=== PATIENT | male | born 1965 | race Caucasian/White ===

== ENCOUNTER 2021-09-29 23:14 | Inpatient (IN) | payer MEDICAID ==
[~2021-09-29] VITALS: Ht 172.7 cm; Wt 63.0 kg
[2021-09-29] MEDS ORDERED: GABAPE PO (23:50)
[2021-09-29] MEDS ORDERED: DULO-114 PO (23:50)
[2021-09-29] MEDS ORDERED: TAMS-13 PO (23:50)
[2021-09-29 23:57] LABS: BASOPHILS % (AUTO) 0.7 % (0.0-2.0); EOSINOPHILS % (AUTO) 0.7 % (1.0-6.0); HEMATOCRIT 40.5 % (41-53); HEMOGLOBIN 13.8 g/dL (13.5-17.5); LYMPHOCYTES % (AUTO) 17.3 % (22.0-44.0); MEAN CORPUSCULAR HEMOGLOBIN 34.3 pg (26.0-34.0); MEAN CORPUSCULAR HGB CONC 34.2 G/dL (31.0-37.0); MEAN CORPUSCULAR VOLUME 100 fL (80-100); MONOCYTES # (AUTO) 0.9 K/uL (0.1-1.0); MONOCYTES % (AUTO) 7.4 % (2.0-9.0); NEUTROPHILS # (AUTO) 8.7 K/uL (1.8-7.7); NEUTROPHILS % (AUTO) 73.9 % (40.0-70.0); PLATELET COUNT (AUTO) 226 K/uL (150-450); RED BLOOD CELL COUNT(AUTO) 4.04 MIL/uL (4.50-5.90); RED CELL DISTRIBUTION WIDTH 15.6 % (11.5-14.5)
[2021-09-30 00:18] LABS: ANION GAP 12 mmol/L (8-16); CALCIUM, TOTAL 9.1 mg/dL (8.8-10.5); CARBON DIOXIDE 26 mmol/L (22-29); CHLORIDE 101 mmol/L (98-107); CREATININE 0.79 mg/dL (0.60-1.30); GLUCOSE,RANDOM 91 mg/dL (70-110); POTASSIUM 3.7 mmol/L (3.5-5.1); SODIUM SERUM 139 mmol/L (136-145); UREA NITROGEN, BLOOD 14 mg/dL (7-18)
[2021-09-30 00:22] LABS: GLOMERULAR FILTR. RATE CALC > 60 mL/min (>60)
[2021-09-30 00:23] LABS: ALANINE AMINOTRANSFERASE 23 U/L (12-78); ALBUMIN 3.6 g/dL (3.4-5.0); ALKALINE PHOSPHATASE 103 U/L (46-116); ASPARTATE AMINOTRANSFERASE 32 U/L (15-37); BILIRUBIN,TOTAL 0.4 mg/dL (0.1-1.0); LIPASE 204 U/L (73-393); TOTAL PROTEIN, SERUM 7.1 g/dL (6.4-8.2)
[2021-09-30 00:25] LABS: LACTIC ACID 0.9 mmol/L (0.4-2.0)
[2021-09-30 00:47] LABS: B-TYPE NATRIURETIC PEPTIDE 6 pg/mL (0-100)
[2021-09-30] MEDS ORDERED: MAGNESIUM SULFATE 2 GM, MVI, ADULT NO.1 WITH VIT K 10 ML, THIAMINE 100 MG, FOLIC ACID 1... IV ONE ×10 (01:30→15:45)
[2021-09-30] MEDS ORDERED: DIAZEPAM 5 MG/ML 2 ML SYRINGE IVP ONE (01:30)
[2021-09-30] MEDS ORDERED: 0.9% SODIUM CHLORIDE 10 ML SYRINGE IVP PRN (02:45)
[2021-09-30] MEDS ORDERED: ONDANSETRON HCL 4 MG/2 ML VIAL IVP PRN ×2 (02:45→15:45)
[2021-09-30] MEDS ORDERED: ACETAMINOPHEN 325 MG TABLET PO PRN ×2 (02:45→15:45)
[2021-09-30 02:56] LABS: COVID AG,FIA SOURCE NASOPHARYNGEAL
[2021-09-30] MEDS ORDERED: LORazepam 2 MG TABLET PO ONE (03:00)
[2021-09-30] MEDS ORDERED: LORazepam 1 MG TABLET PO PRN (03:00)
[2021-09-30 11:49] VITALS: BP 135/84
[2021-09-30] MEDS ORDERED: HYDROCODONE/ACETAMINOPHEN 5-325 MG TABLET PO PRN (15:45)
[2021-09-30] MEDS ORDERED: BISACODYL 10 MG RECTAL RECTAL SUPPOSITORY PR PRN (15:45)
[2021-09-30] MEDS ORDERED: MORPHINE SULFATE 2 MG/ML SYRINGE IVP PRN (15:45)
[2021-09-30] MEDS ORDERED: MAGNESIUM HYDROXIDE SUSPENSION 30 ML UDCUP PO PRN (15:45)
[2021-09-30] MEDS: TAMSULOSIN HCL 0.4 MG CAPSULE PO SCH (16:17)
[2021-09-30] MEDS: ChlordiazePOXIDE HCL 25 MG CAPSULE PO SCH ×2 (16:17→23:56)
[2021-09-30] MEDS: DULoxetine HCL 30 MG CAPSULE PO SCH (16:18)
[2021-09-30] MEDS: HEPARIN SODIUM,PORCINE 5,000 UNITS/ML VIAL SQ SCH ×2 (16:18→23:57)
[2021-09-30 16:56] VITALS: BP 145/83
[2021-09-30 19:59] VITALS: BP 123/63
[2021-09-30] MEDS: DOCUSATE SODIUM 100 MG CAPSULE PO SCH (20:26)
[2021-10-01 05:25] VITALS: BP 133/84
[2021-10-01 06:07] LABS: BASOPHILS % (AUTO) 1.2 % (0.0-2.0); EOSINOPHILS % (AUTO) 1.2 % (1.0-6.0); HEMOGLOBIN 13.1 g/dL (13.5-17.5); LYMPHOCYTES # (AUTO) 2.3 K/uL (1.0-4.8); LYMPHOCYTES % (AUTO) 36.5 % (22.0-44.0); MEAN CORPUSCULAR HEMOGLOBIN 34.8 pg (26.0-34.0); MEAN CORPUSCULAR HGB CONC 34.6 G/dL (31.0-37.0); MEAN CORPUSCULAR VOLUME 101 fL (80-100); MONOCYTES # (AUTO) 0.7 K/uL (0.1-1.0); MONOCYTES % (AUTO) 11.4 % (2.0-9.0); NEUTROPHILS # (AUTO) 3.1 K/uL (1.8-7.7); NEUTROPHILS % (AUTO) 49.7 % (40.0-70.0); PLATELET COUNT (AUTO) 198 K/uL (150-450); RED BLOOD CELL COUNT(AUTO) 3.77 MIL/uL (4.50-5.90); RED CELL DISTRIBUTION WIDTH 15.1 % (11.5-14.5)
[2021-10-01 06:15] LABS: ANION GAP 9 mmol/L (8-16); CALCIUM, TOTAL 8.6 mg/dL (8.8-10.5); CARBON DIOXIDE 24 mmol/L (22-29); CHLORIDE 107 mmol/L (98-107); CREATININE 0.69 mg/dL (0.60-1.30); GLUCOSE,RANDOM 103 mg/dL (70-110); POTASSIUM 3.6 mmol/L (3.5-5.1); SODIUM SERUM 140 mmol/L (136-145); UREA NITROGEN, BLOOD 9 mg/dL (7-18)
[2021-10-01 06:20] LABS: GLOMERULAR FILTR. RATE CALC > 60 mL/min (>60)
[2021-10-01] MEDS: ChlordiazePOXIDE HCL 25 MG CAPSULE PO SCH ×2 (08:30→20:37)
[2021-10-01] MEDS: DOCUSATE SODIUM 100 MG CAPSULE PO SCH ×2 (08:30→20:40)
[2021-10-01] MEDS: DULoxetine HCL 30 MG CAPSULE PO SCH (08:31)
[2021-10-01] MEDS: TAMSULOSIN HCL 0.4 MG CAPSULE PO SCH (08:31)
[2021-10-01] MEDS: PANTOPRAZOLE SODIUM 40 MG DR TABLET PO SCH (08:31)
[2021-10-01] MEDS: HEPARIN SODIUM,PORCINE 5,000 UNITS/ML VIAL SQ SCH ×4 (08:31→23:38)
[2021-10-01 08:44] VITALS: BP 128/77
[2021-10-01] MEDS ORDERED: TAMSULOSIN HCL 0.4 MG CAPSULE PO SCH (09:00)
[2021-10-01] MEDS ORDERED: DULoxetine HCL 30 MG CAPSULE PO SCH (09:00)
[2021-10-01] MEDS ORDERED: MAGNESIUM SULFATE 2 GM, MVI, ADULT NO.1 WITH VIT K 10 ML, THIAMINE 100 MG, FOLIC ACID 1... IV ONE ×5 (15:15)
[2021-10-01 16:05] VITALS: BP 110/65
[2021-10-01 20:32] VITALS: BP 112/74
[2021-10-01] MEDS: ZOLPIDEM TARTRATE 5 MG TABLET PO PRN (23:38)
[2021-10-02 04:55] VITALS: BP 118/72
[2021-10-02 07:58] VITALS: BP 122/74
[2021-10-02] MEDS: DOCUSATE SODIUM 100 MG CAPSULE PO SCH ×2 (09:00→21:00)
[2021-10-02] MEDS: PANTOPRAZOLE SODIUM 40 MG DR TABLET PO SCH (09:35)
[2021-10-02] MEDS: DULoxetine HCL 30 MG CAPSULE PO SCH (09:35)
[2021-10-02] MEDS: TAMSULOSIN HCL 0.4 MG CAPSULE PO SCH (09:35)
[2021-10-02] MEDS: ChlordiazePOXIDE HCL 25 MG CAPSULE PO SCH ×2 (09:36→21:08)
[2021-10-02 11:43] LABS: BASOPHILS % (AUTO) 0.7 % (0.0-2.0); EOSINOPHILS % (AUTO) 0.8 % (1.0-6.0); HEMATOCRIT 40.2 % (41-53); HEMOGLOBIN 13.8 g/dL (13.5-17.5); LYMPHOCYTES # (AUTO) 1.8 K/uL (1.0-4.8); LYMPHOCYTES % (AUTO) 30.2 % (22.0-44.0); MEAN CORPUSCULAR HEMOGLOBIN 34.7 pg (26.0-34.0); MEAN CORPUSCULAR HGB CONC 34.3 G/dL (31.0-37.0); MEAN CORPUSCULAR VOLUME 101 fL (80-100); MONOCYTES # (AUTO) 0.6 K/uL (0.1-1.0); MONOCYTES % (AUTO) 9.8 % (2.0-9.0); NEUTROPHILS # (AUTO) 3.5 K/uL (1.8-7.7); NEUTROPHILS % (AUTO) 58.5 % (40.0-70.0); PLATELET COUNT (AUTO) 212 K/uL (150-450); RED BLOOD CELL COUNT(AUTO) 3.97 MIL/uL (4.50-5.90); RED CELL DISTRIBUTION WIDTH 15.8 % (11.5-14.5)
[2021-10-02 11:54] LABS: ANION GAP 11 mmol/L (8-16); CARBON DIOXIDE 24 mmol/L (22-29); CHLORIDE 105 mmol/L (98-107); CREATININE 0.81 mg/dL (0.60-1.30); GLOMERULAR FILTR. RATE CALC > 60 mL/min (>60); GLUCOSE,RANDOM 93 mg/dL (70-110); SODIUM SERUM 140 mmol/L (136-145); UREA NITROGEN, BLOOD 8 mg/dL (7-18)
[2021-10-02] MEDS ORDERED: CHLO5CAP4 PO (12:26)
[2021-10-02] MEDS ORDERED: TAMS-13 PO (12:26)
[2021-10-02] MEDS: HEPARIN SODIUM,PORCINE 5,000 UNITS/ML VIAL SQ SCH (16:22)
[2021-10-02 19:59] VITALS: BP 120/80
[2021-10-02] MEDS: ZOLPIDEM TARTRATE 5 MG TABLET PO PRN (21:08)
[2021-10-03 03:55] VITALS: BP 124/67
[2021-10-03 07:42] VITALS: BP 116/76
[2021-10-03] MEDS: DOCUSATE SODIUM 100 MG CAPSULE PO SCH (09:00)
[2021-10-03] MEDS: DULoxetine HCL 30 MG CAPSULE PO SCH (09:14)
[2021-10-03] MEDS: HEPARIN SODIUM,PORCINE 5,000 UNITS/ML VIAL SQ SCH ×2 (09:14)
[2021-10-03] MEDS: PANTOPRAZOLE SODIUM 40 MG DR TABLET PO SCH (09:14)
[2021-10-03] MEDS: ChlordiazePOXIDE HCL 25 MG CAPSULE PO SCH (09:14)
[2021-10-03] MEDS: TAMSULOSIN HCL 0.4 MG CAPSULE PO SCH (09:14)
[2021-10-03 11:58] LABS: BASOPHILS % (AUTO) 1.1 % (0.0-2.0); EOSINOPHILS % (AUTO) 0.8 % (1.0-6.0); HEMATOCRIT 41.7 % (41-53); LYMPHOCYTES # (AUTO) 2.6 K/uL (1.0-4.8); LYMPHOCYTES % (AUTO) 31.3 % (22.0-44.0); MEAN CORPUSCULAR HEMOGLOBIN 34.3 pg (26.0-34.0); MEAN CORPUSCULAR HGB CONC 33.6 G/dL (31.0-37.0); MEAN CORPUSCULAR VOLUME 102 fL (80-100); MONOCYTES # (AUTO) 0.8 K/uL (0.1-1.0); MONOCYTES % (AUTO) 9.1 % (2.0-9.0); NEUTROPHILS # (AUTO) 4.8 K/uL (1.8-7.7); NEUTROPHILS % (AUTO) 57.7 % (40.0-70.0); PLATELET COUNT (AUTO) 216 K/uL (150-450); RED BLOOD CELL COUNT(AUTO) 4.09 MIL/uL (4.50-5.90); RED CELL DISTRIBUTION WIDTH 15.3 % (11.5-14.5)
[2021-10-03 12:17] LABS: ANION GAP 11 mmol/L (8-16); CALCIUM, TOTAL 9.4 mg/dL (8.8-10.5); CARBON DIOXIDE 26 mmol/L (22-29); CHLORIDE 102 mmol/L (98-107); CREATININE 0.78 mg/dL (0.60-1.30); GLOMERULAR FILTR. RATE CALC > 60 mL/min (>60); GLUCOSE,RANDOM 100 mg/dL (70-110); SODIUM SERUM 139 mmol/L (136-145); UREA NITROGEN, BLOOD 11 mg/dL (7-18)
[2021-10-03 16:00] VITALS: BP 120/79
== END 2021-10-03 17:25 | disposition home or self-care (01) | DRG 775 ==
LOC: EMS 23:17 → 6S 09-30 10:54
PROVIDERS: ADMIT Hospitalist; ATTEND Internal Medicine
DX: F10.239 Alcohol dependence with withdrawal, unspecified (principal); R45.851 Suicidal ideations; R65.10 Systemic inflammatory response syndrome (SIRS) of non-infectious origin without acute organ dysfunction; F33.2 Major depressive disorder, recurrent severe without psychotic features; N40.0 Benign prostatic hyperplasia without lower urinary tract symptoms; Z20.822 Contact with and (suspected) exposure to COVID-19; Y90.9 Presence of alcohol in blood, level not specified
CPT/HCPCS: 71045; 80048; 80053; 83605; 83690; 83735; 83880; 84484; 85025; 93005; 97116; 97162; 97530; 99285; G0480; J1644; J3411; J3475; J3490; J7030; 36415-L1; 36415-TC

== ENCOUNTER 2021-11-17 21:04 | Inpatient (IN) | payer MEDICAID ==
[~2021-11-17] VITALS: Ht 182.9 cm; Wt 60.3 kg
[~2021-11-17 21:04] MED LIST: CHLO5CAP4 PO; DULO-114 PO; GABAPE PO; TAMS-13 PO
[2021-11-17 22:19] LABS: BASOPHILS % (AUTO) 0.7 % (0.0-2.0); EOSINOPHILS % (AUTO) 0.2 % (1.0-6.0); HEMATOCRIT 39.9 % (41-53); HEMOGLOBIN 13.4 g/dL (13.5-17.5); LYMPHOCYTES # (AUTO) 1.7 K/uL (1.0-4.8); LYMPHOCYTES % (AUTO) 24.4 % (22.0-44.0); MEAN CORPUSCULAR HEMOGLOBIN 34.6 pg (26.0-34.0); MEAN CORPUSCULAR HGB CONC 33.5 G/dL (31.0-37.0); MEAN CORPUSCULAR VOLUME 103 fL (80-100); MONOCYTES # (AUTO) 0.4 K/uL (0.1-1.0); MONOCYTES % (AUTO) 6.1 % (2.0-9.0); NEUTROPHILS # (AUTO) 4.8 K/uL (1.8-7.7); NEUTROPHILS % (AUTO) 68.6 % (40.0-70.0); PLATELET COUNT (AUTO) 189 K/uL (150-450); RED BLOOD CELL COUNT(AUTO) 3.87 MIL/uL (4.50-5.90); RED CELL DISTRIBUTION WIDTH 15.1 % (11.5-14.5)
[2021-11-17 22:31] LABS: ANION GAP 20 mmol/L (8-16); CALCIUM, TOTAL 8.8 mg/dL (8.8-10.5); CARBON DIOXIDE 19 mmol/L (22-29); CHLORIDE 98 mmol/L (98-107); CREATININE 1.02 mg/dL (0.60-1.30); GLUCOSE,RANDOM 67 mg/dL (70-110); POTASSIUM 3.7 mmol/L (3.5-5.1); SODIUM SERUM 137 mmol/L (136-145); UREA NITROGEN, BLOOD 18 mg/dL (7-18)
[2021-11-17 22:35] LABS: GLOMERULAR FILTR. RATE CALC > 60 mL/min (>60)
[2021-11-17 22:36] LABS: ALANINE AMINOTRANSFERASE 27 U/L (12-78); ALBUMIN 3.8 g/dL (3.4-5.0); ALKALINE PHOSPHATASE 98 U/L (46-116); ASPARTATE AMINOTRANSFERASE 33 U/L (15-37); BILIRUBIN,TOTAL 0.5 mg/dL (0.1-1.0); TOTAL PROTEIN, SERUM 6.7 g/dL (6.4-8.2)
[2021-11-17 22:37] LABS: ACETAMINOPHEN < 2 mcg/mL (10-30)
[2021-11-17 22:46] LABS: SALICYLATE 10.3 mg/dL (2.8-20.0)
[2021-11-17 22:58] LABS: COVID AG,FIA SOURCE NASAL SWAB
[2021-11-18] MEDS ORDERED: HALOPERIDOL 5 MG TABLET PO PRN (01:45)
[2021-11-18] MEDS ORDERED: ZOLPIDEM TARTRATE 10 MG TABLET PO PRN (01:45)
[2021-11-18 04:08] LABS: AMPHET/METH SCREEN,URINE NEGATIVE (NEGATIVE); BARBITURATE SCREEN, URINE NEGATIVE (NEGATIVE); BENZODIAZEPINES SCREEN,URINE NEGATIVE (NEGATIVE); CANNABINOID SCREEN,URINE NEGATIVE (NEGATIVE); COCAINE SCREEN,URINE NEGATIVE (NEGATIVE); METHADONE SCREEN, URINE NEGATIVE (NEGATIVE); OPIATE SCREEN,URINE NEGATIVE (NEGATIVE); PHENCYCLIDINE SCREEN,URINE NEGATIVE (NEGATIVE)
[2021-11-18] MEDS: LORazepam 1 MG TABLET PO PRN ×2 (12:03→19:10)
[2021-11-19] MEDS: LORazepam 1 MG TABLET PO PRN ×2 (05:46→18:27)
[2021-11-19 09:43] VITALS: BP 142/90
[2021-11-19 16:18] VITALS: BP 120/77
[2021-11-19 17:51] LABS: APPEARANCE,URINE HAZY (CLEAR); GLUCOSE, URINE (UA) NEGATIVE (NEGATIVE); KETONES,URINE NEGATIVE (NEGATIVE); LEUKOCYTE ESTERASE ,URINE LARGE (NEGATIVE); NITRATE,URINE NEGATIVE (NEGATIVE); OCCULT BLOOD,URINE TRACE (NEGATIVE); PROTEIN,URINE 30-70 mg/dL (NEGATIVE); SPECIFIC GRAVITIY, URINE 1.016 (1.003-1.030)
[2021-11-19 17:52] LABS: BILIRUBIN,URINE SMALL (NEGATIVE)
[2021-11-19 17:58] LABS: WBC,URINE 26-50 /HPF (0-5)
[2021-11-19 17:59] LABS: BACTERIA,URINE Moderate /HPF (None Seen); SQUAMOUS EPITHELIAL CELL,UR Few /LPF (None Seen)
[2021-11-19] MEDS: FLUTICASONE PROPIONATE 50 MCG/SPRAY 16 GM NASAL SPRAY NASAL SCH (22:12)
[2021-11-19] MEDS ORDERED: DOCUSATE SODIUM 100 MG CAPSULE PO PRN (22:30)
[2021-11-19] MEDS ORDERED: ACETAMINOPHEN 325 MG TABLET PO PRN (22:30)
[2021-11-19] MEDS ORDERED: IBUPROFEN 600 MG TABLET PO PRN (22:30)
[2021-11-19] MEDS ORDERED: ONDANSETRON HCL 4 MG TABLET PO PRN (22:30)
[2021-11-19] MEDS ORDERED: CloNIDine HCL 0.1 MG TABLET PO PRN (22:30)
[2021-11-19] MEDS ORDERED: MAGNESIUM HYDROXIDE SUSPENSION 30 ML UDCUP PO PRN (22:30)
[2021-11-19] MEDS ORDERED: MAG HYDROX/AL HYDROX/SIMETH ES 30 ML SUSPENSION UDCUP PO PRN (22:30)
[2021-11-19] MEDS ORDERED: PETROLATUM,WHITE 28 GM JELLY TP PRN (22:30)
[2021-11-19] MEDS ORDERED: LOPERAMIDE HCL 2 MG CAPSULE PO PRN (22:30)
[2021-11-19] MEDS ORDERED: BENZOCAINE/MENTHOL LOZENGE PO PRN (22:30)
[2021-11-19] MEDS ORDERED: ALBUTEROL SULFATE HFA 90 MCG/PUFF 8 GM INHALER IH PRN (22:30)
[2021-11-19] MEDS ORDERED: OMEPRAZOLE 20 MG CAPSULE PO PRN (22:30)
[2021-11-20 08:59] VITALS: BP 131/83
[2021-11-20] MEDS: FLUTICASONE PROPIONATE 50 MCG/SPRAY 16 GM NASAL SPRAY NASAL SCH ×2 (11:07→17:08)
[2021-11-20] MEDS: CEPHALEXIN MONOHYDRATE 500 MG CAPSULE PO SCH ×2 (11:07→17:05)
[2021-11-20] MEDS: TAMSULOSIN HCL 0.4 MG CAPSULE PO SCH (11:07)
[2021-11-20] MEDS: LORazepam 1 MG TABLET PO PRN ×3 (11:07→21:15)
[2021-11-20 16:27] VITALS: BP 110/61
[2021-11-20] MEDS: OLANZapine 5 MG TABLET PO SCH (20:53)
[2021-11-21] MEDS: CEPHALEXIN MONOHYDRATE 500 MG CAPSULE PO SCH ×3 (08:45→16:04)
[2021-11-21] MEDS: DULoxetine HCL 60 MG CAPSULE PO SCH (08:45)
[2021-11-21] MEDS: LACTOBAC ACID/BULG/BIFID/THERM TABLET PO SCH (08:45)
[2021-11-21] MEDS: TAMSULOSIN HCL 0.4 MG CAPSULE PO SCH (08:45)
[2021-11-21 09:18] VITALS: BP 125/70
[2021-11-21] MEDS: LORazepam 1 MG TABLET PO PRN ×2 (09:27→18:03)
[2021-11-21] MEDS: FLUTICASONE PROPIONATE 50 MCG/SPRAY 16 GM NASAL SPRAY NASAL SCH ×2 (10:16→16:04)
[2021-11-21] MEDS: MULTIVITAMINS WITH MINERALS, THERAPEUTIC TABLET PO SCH (10:16)
[2021-11-21] MEDS: THIAMINE 100 MG TABLET PO SCH (10:16)
[2021-11-21] MEDS: FOLIC ACID 1 MG TABLET PO SCH (10:16)
[2021-11-21 16:08] VITALS: BP 122/71
[2021-11-21] MEDS: OLANZapine 5 MG TABLET PO SCH (21:00)
[2021-11-22 06:52] LABS: MAGNESIUM 1.5 mg/dL (1.80-2.40); PHOSPHORUS 4.8 mg/dL (2.5-4.9)
[2021-11-22] MEDS: THIAMINE 100 MG TABLET PO SCH (08:24)
[2021-11-22] MEDS: CEPHALEXIN MONOHYDRATE 500 MG CAPSULE PO SCH ×3 (08:24→16:20)
[2021-11-22] MEDS: FOLIC ACID 1 MG TABLET PO SCH (08:24)
[2021-11-22] MEDS: TAMSULOSIN HCL 0.4 MG CAPSULE PO SCH (08:24)
[2021-11-22] MEDS: MULTIVITAMINS WITH MINERALS, THERAPEUTIC TABLET PO SCH (08:24)
[2021-11-22] MEDS: LACTOBAC ACID/BULG/BIFID/THERM TABLET PO SCH (08:24)
[2021-11-22] MEDS: FLUTICASONE PROPIONATE 50 MCG/SPRAY 16 GM NASAL SPRAY NASAL SCH ×2 (08:24→16:21)
[2021-11-22] MEDS: DULoxetine HCL 60 MG CAPSULE PO SCH (08:24)
[2021-11-22 08:35] VITALS: BP 127/92
[2021-11-22] MEDS: LORazepam 1 MG TABLET PO PRN ×2 (10:01→18:30)
[2021-11-22] MEDS ORDERED: MAGNESIUM OXIDE 400 MG TABLET PO ONE (10:15)
[2021-11-22 16:35] VITALS: BP 124/85
[2021-11-23 06:50] LABS: COVID AG,FIA SOURCE NASAL SWAB
[2021-11-23 08:00] VITALS: BP 111/69
[2021-11-23] MEDS: LACTOBAC ACID/BULG/BIFID/THERM TABLET PO SCH (08:20)
[2021-11-23] MEDS: MULTIVITAMINS WITH MINERALS, THERAPEUTIC TABLET PO SCH (08:20)
[2021-11-23] MEDS: TAMSULOSIN HCL 0.4 MG CAPSULE PO SCH (08:20)
[2021-11-23] MEDS: FOLIC ACID 1 MG TABLET PO SCH (08:20)
[2021-11-23] MEDS: CEPHALEXIN MONOHYDRATE 500 MG CAPSULE PO SCH ×3 (08:21→16:17)
[2021-11-23] MEDS: DULoxetine HCL 30 MG CAPSULE PO SCH (08:21)
[2021-11-23] MEDS: THIAMINE 100 MG TABLET PO SCH (08:21)
[2021-11-23] MEDS: FLUTICASONE PROPIONATE 50 MCG/SPRAY 16 GM NASAL SPRAY NASAL SCH ×2 (08:23→16:18)
[2021-11-23 16:48] VITALS: BP 128/77
[2021-11-23] MEDS: LORazepam 1 MG TABLET PO PRN ×2 (17:52→20:04)
[2021-11-23 20:06] VITALS: BP 118/77
[2021-11-24 08:00] VITALS: BP 131/51
[2021-11-24] MEDS: FOLIC ACID 1 MG TABLET PO SCH (08:16)
[2021-11-24] MEDS: DULoxetine HCL 30 MG CAPSULE PO SCH (08:16)
[2021-11-24] MEDS: MULTIVITAMINS WITH MINERALS, THERAPEUTIC TABLET PO SCH (08:16)
[2021-11-24] MEDS: TAMSULOSIN HCL 0.4 MG CAPSULE PO SCH (08:16)
[2021-11-24] MEDS: THIAMINE 100 MG TABLET PO SCH (08:16)
[2021-11-24] MEDS: FLUTICASONE PROPIONATE 50 MCG/SPRAY 16 GM NASAL SPRAY NASAL SCH (08:17)
[2021-11-24] MEDS: CEPHALEXIN MONOHYDRATE 500 MG CAPSULE PO SCH (08:17)
[2021-11-24] MEDS: LACTOBAC ACID/BULG/BIFID/THERM TABLET PO SCH (08:17)
[2021-11-24] MEDS ORDERED: MAGNESIUM OXIDE 400 MG TABLET PO SCH (09:00)
[2021-11-24] MEDS ORDERED: DULO-114 PO (09:33)
[2021-11-24] MEDS ORDERED: FOLI0.4T6 PO (10:48)
[2021-11-24] MEDS ORDERED: THIA100T80 PO (10:48)
[2021-11-24] MEDS ORDERED: CEPH-558 PO (10:48)
[2021-11-24] MEDS ORDERED: MULT-1239 PO (10:48)
[2021-11-24] MEDS ORDERED: FLUT16H NASAL (10:48)
[2021-11-24] MEDS ORDERED: ACID1TAB13 PO (10:48)
[2021-11-24] MEDS ORDERED: MAGN400T57 PO (10:48)
== END 2021-11-24 11:30 | disposition home or self-care (01) | DRG 750 ==
LOC: EMS 21:06 → 3EI 11-19 08:33
PROVIDERS: ADMIT Psychiatry & Neurology Psychiatry; ATTEND Psychiatry & Neurology Psychiatry
DX: F25.9 Schizoaffective disorder, unspecified (principal); R45.851 Suicidal ideations; T39.1X2A Poisoning by 4-Aminophenol derivatives, intentional self-harm, initial encounter; F10.20 Alcohol dependence, uncomplicated; F32.A Depression, unspecified; Z20.822 Contact with and (suspected) exposure to COVID-19; J44.9 Chronic obstructive pulmonary disease, unspecified; N40.0 Benign prostatic hyperplasia without lower urinary tract symptoms; G47.00 Insomnia, unspecified; K59.00 Constipation, unspecified; F41.9 Anxiety disorder, unspecified; K21.9 Gastro-esophageal reflux disease without esophagitis; N39.0 Urinary tract infection, site not specified; Z87.891 Personal history of nicotine dependence; Y92.89 Other specified places as the place of occurrence of the external cause; Z91.51 Personal history of suicidal behavior; Z79.899 Other long term (current) drug therapy
CPT/HCPCS: 80053; 81001; 83735; 84100; 85025; 87086; 87186; 93005; 99285; G0480; G0481

== ENCOUNTER 2022-01-02 12:08 | Inpatient (IN) | payer MEDICAID ==
[~2022-01-02] VITALS: Ht 182.9 cm; Wt 66.1 kg
[~2022-01-02 12:08] MED LIST changes: +ACID1TAB13 PO; +CEPH-558 PO; -CHLO5CAP4 PO; +FLUT16SP NASAL; +FOLI0.4T6 PO; -GABAPE PO; +MAGN400T57 PO; +MULT-1239 PO; +THIA100T80 PO
[2022-01-02] MEDS ORDERED: LIDOCAINE 5% TRANSDERMAL PATCH TD ONE (14:15)
[2022-01-02] MEDS ORDERED: ACETAMINOPHEN 500 MG TABLET PO ONE (14:15)
[2022-01-02 15:09] LABS: COVID AG,FIA SOURCE NASOPHARYNGEAL
[2022-01-02 15:39] LABS: EOSINOPHILS % (AUTO) 0.8 % (1.0-6.0); HEMATOCRIT 48.7 % (41-53); HEMOGLOBIN 16.5 g/dL (13.5-17.5); LYMPHOCYTES % (AUTO) 32.4 % (22.0-44.0); MEAN CORPUSCULAR HEMOGLOBIN 34.3 pg (26.0-34.0); MEAN CORPUSCULAR HGB CONC 33.8 G/dL (31.0-37.0); MEAN CORPUSCULAR VOLUME 102 fL (80-100); MONOCYTES # (AUTO) 0.5 K/uL (0.1-1.0); NEUTROPHILS # (AUTO) 7.4 K/uL (1.8-7.7); NEUTROPHILS % (AUTO) 60.8 % (40.0-70.0); PLATELET COUNT (AUTO) 382 K/uL (150-450); RED CELL DISTRIBUTION WIDTH 15.1 % (11.5-14.5)
[2022-01-02 15:52] LABS: ANION GAP 13 mmol/L (8-16); CALCIUM, TOTAL 9.9 mg/dL (8.8-10.5); CARBON DIOXIDE 25 mmol/L (22-29); CHLORIDE 103 mmol/L (98-107); CREATININE 0.95 mg/dL (0.60-1.30); GLOMERULAR FILTR. RATE CALC > 60 mL/min (>60); GLUCOSE,RANDOM 90 mg/dL (70-110); POTASSIUM 3.9 mmol/L (3.5-5.1); SODIUM SERUM 141 mmol/L (136-145); UREA NITROGEN, BLOOD 10 mg/dL (7-18)
[2022-01-02 15:58] LABS: ALANINE AMINOTRANSFERASE 30 U/L (12-78); ALBUMIN 4.2 g/dL (3.4-5.0); ALKALINE PHOSPHATASE 109 U/L (46-116); ASPARTATE AMINOTRANSFERASE 30 U/L (15-37); BILIRUBIN,TOTAL 0.4 mg/dL (0.1-1.0); TOTAL PROTEIN, SERUM 8.3 g/dL (6.4-8.2)
[2022-01-02] MEDS ORDERED: LORazepam 1 MG TABLET PO ONE (16:00)
[2022-01-02] MEDS ORDERED: IBUPROFEN 600 MG TABLET PO ONE (16:00)
[2022-01-02] MEDS: ZOLPIDEM TARTRATE 10 MG TABLET PO PRN (21:13)
[2022-01-02 21:52] LABS: APPEARANCE,URINE CLEAR (CLEAR); BILIRUBIN,URINE NEGATIVE (NEGATIVE); GLUCOSE, URINE (UA) NEGATIVE (NEGATIVE); KETONES,URINE NEGATIVE (NEGATIVE); LEUKOCYTE ESTERASE ,URINE NEGATIVE (NEGATIVE); NITRATE,URINE NEGATIVE (NEGATIVE); OCCULT BLOOD,URINE NEGATIVE (NEGATIVE); PH,URINE 6.5 (5.0-8.0); PROTEIN,URINE 30-70 mg/dL (NEGATIVE); SPECIFIC GRAVITIY, URINE 1.014 (1.003-1.030); UROBILINOGEN,URINE <=1.0 mg/dL (<=1.0)
[2022-01-02 21:58] LABS: AMPHET/METH SCREEN,URINE NEGATIVE (NEGATIVE); BARBITURATE SCREEN, URINE NEGATIVE (NEGATIVE); BENZODIAZEPINES SCREEN,URINE NEGATIVE (NEGATIVE); CANNABINOID SCREEN,URINE NEGATIVE (NEGATIVE); COCAINE SCREEN,URINE NEGATIVE (NEGATIVE); METHADONE SCREEN, URINE NEGATIVE (NEGATIVE); OPIATE SCREEN,URINE NEGATIVE (NEGATIVE)
[2022-01-02 22:01] LABS: PHENCYCLIDINE SCREEN,URINE NEGATIVE (NEGATIVE)
[2022-01-02] MEDS: LORazepam 2 MG TABLET PO PRN (22:21)
[2022-01-02] MEDS: HALOPERIDOL 5 MG TABLET PO PRN (22:21)
[2022-01-02 22:30] VITALS: BP 114/68
[2022-01-03 08:00] VITALS: BP 132/80
[2022-01-03] MEDS: DULoxetine HCL 60 MG CAPSULE PO SCH (08:34)
[2022-01-03] MEDS: DIVALPROEX SODIUM 500 MG DR TABLET PO SCH ×2 (08:46→20:30)
[2022-01-03] MEDS ORDERED: CloNIDine HCL 0.1 MG TABLET PO PRN (11:15)
[2022-01-03] MEDS ORDERED: LOPERAMIDE HCL 2 MG CAPSULE PO PRN (11:15)
[2022-01-03] MEDS ORDERED: OMEPRAZOLE 20 MG CAPSULE PO PRN (11:15)
[2022-01-03] MEDS ORDERED: ALBUTEROL SULFATE HFA 90 MCG/PUFF 8 GM INHALER IH PRN (11:15)
[2022-01-03] MEDS ORDERED: PETROLATUM,WHITE 28 GM JELLY TP PRN (11:15)
[2022-01-03] MEDS ORDERED: MAG HYDROX/AL HYDROX/SIMETH ES 30 ML SUSPENSION UDCUP PO PRN (11:15)
[2022-01-03] MEDS ORDERED: BACITRACIN 28 GM OINTMENT TP PRN (11:15)
[2022-01-03] MEDS ORDERED: ONDANSETRON HCL 4 MG TABLET PO PRN (11:15)
[2022-01-03] MEDS ORDERED: BENZOCAINE/MENTHOL LOZENGE PO PRN (11:15)
[2022-01-03] MEDS ORDERED: DOCUSATE SODIUM 100 MG CAPSULE PO PRN (11:15)
[2022-01-03] MEDS: TAMSULOSIN HCL 0.4 MG CAPSULE PO SCH (12:18)
[2022-01-03] MEDS: MULTIVITAMINS WITH MINERALS, THERAPEUTIC TABLET PO SCH (12:18)
[2022-01-03] MEDS: FOLIC ACID 0.4 MG TABLET PO SCH (12:19)
[2022-01-03] MEDS: FLUTICASONE PROPIONATE 50 MCG/SPRAY 16 GM NASAL SPRAY NASAL SCH (12:19)
[2022-01-03] MEDS: THIAMINE 100 MG TABLET PO SCH (12:32)
[2022-01-03] MEDS: LIDOCAINE 5% TRANSDERMAL PATCH TD SCH (12:39)
[2022-01-03] MEDS: HALOPERIDOL 5 MG TABLET PO PRN ×2 (12:40→20:15)
[2022-01-03] MEDS: LORazepam 2 MG TABLET PO PRN ×2 (12:40→20:15)
[2022-01-03] MEDS: TiZANidine HCL 4 MG TABLET PO SCH (16:34)
[2022-01-03 20:10] VITALS: BP 133/80
[2022-01-03] MEDS: TraMADol HCL 50 MG TABLET PO PRN (20:10)
[2022-01-03] MEDS: -LIDODERM PATCH NOTE- MISC SCH (21:00)
[2022-01-03] MEDS: ZOLPIDEM TARTRATE 10 MG TABLET PO PRN (21:09)
[2022-01-04 01:25] VITALS: BP 139/77
[2022-01-04] MEDS: ACETAMINOPHEN 325 MG TABLET PO PRN ×2 (01:25→13:30)
[2022-01-04] MEDS: MULTIVITAMINS WITH MINERALS, THERAPEUTIC TABLET PO SCH (09:26)
[2022-01-04] MEDS: TAMSULOSIN HCL 0.4 MG CAPSULE PO SCH (09:26)
[2022-01-04] MEDS: THIAMINE 100 MG TABLET PO SCH (09:26)
[2022-01-04] MEDS: DIVALPROEX SODIUM 500 MG DR TABLET PO SCH ×2 (09:26→20:19)
[2022-01-04] MEDS: DULoxetine HCL 60 MG CAPSULE PO SCH (09:26)
[2022-01-04] MEDS: TiZANidine HCL 4 MG TABLET PO SCH ×2 (09:27→16:35)
[2022-01-04] MEDS: FOLIC ACID 0.4 MG TABLET PO SCH (09:27)
[2022-01-04] MEDS: FLUTICASONE PROPIONATE 50 MCG/SPRAY 16 GM NASAL SPRAY NASAL SCH (09:28)
[2022-01-04] MEDS: LIDOCAINE 5% TRANSDERMAL PATCH TD SCH (09:50)
[2022-01-04 10:06] VITALS: BP 126/80
[2022-01-04 13:27] VITALS: BP 128/78
[2022-01-04 16:18] VITALS: BP 135/81
[2022-01-04] MEDS: ZOLPIDEM TARTRATE 10 MG TABLET PO PRN (20:02)
[2022-01-04] MEDS: -LIDODERM PATCH NOTE- MISC SCH (20:19)
[2022-01-05 01:43] VITALS: BP 141/80
[2022-01-05] MEDS: TraMADol HCL 50 MG TABLET PO PRN (01:43)
[2022-01-05] MEDS: MULTIVITAMINS WITH MINERALS, THERAPEUTIC TABLET PO SCH (08:41)
[2022-01-05] MEDS: DIVALPROEX SODIUM 500 MG DR TABLET PO SCH ×3 (08:41→21:00)
[2022-01-05] MEDS: DULoxetine HCL 60 MG CAPSULE PO SCH (08:41)
[2022-01-05] MEDS: THIAMINE 100 MG TABLET PO SCH (08:41)
[2022-01-05] MEDS: TiZANidine HCL 4 MG TABLET PO SCH ×2 (08:42→16:18)
[2022-01-05] MEDS: TAMSULOSIN HCL 0.4 MG CAPSULE PO SCH (08:43)
[2022-01-05] MEDS: FOLIC ACID 0.4 MG TABLET PO SCH (08:43)
[2022-01-05] MEDS: FLUTICASONE PROPIONATE 50 MCG/SPRAY 16 GM NASAL SPRAY NASAL SCH (08:44)
[2022-01-05] MEDS: RisperiDONE 1 MG TABLET PO SCH ×2 (08:45→16:17)
[2022-01-05] MEDS: LIDOCAINE 5% TRANSDERMAL PATCH TD SCH (08:57)
[2022-01-05 09:00] VITALS: BP 110/65
[2022-01-05] MEDS ORDERED: TAMSULOSIN HCL 0.4 MG CAPSULE PO SCH (11:45)
[2022-01-05 18:32] VITALS: BP 101/60
[2022-01-05] MEDS: LORazepam 2 MG TABLET PO PRN (19:45)
[2022-01-05] MEDS: -LIDODERM PATCH NOTE- MISC SCH (21:00)
[2022-01-05] MEDS: GABAPENTIN 100 MG CAPSULE PO SCH (21:02)
[2022-01-05] MEDS: ZOLPIDEM TARTRATE 10 MG TABLET PO PRN (21:03)
[2022-01-05] MEDS: HALOPERIDOL 5 MG TABLET PO PRN (21:03)
[2022-01-06 08:15] VITALS: BP 113/78
[2022-01-06] MEDS: FOLIC ACID 0.4 MG TABLET PO SCH (08:49)
[2022-01-06] MEDS: TiZANidine HCL 4 MG TABLET PO SCH ×2 (08:49→17:04)
[2022-01-06] MEDS: LIDOCAINE 5% TRANSDERMAL PATCH TD SCH (08:49)
[2022-01-06] MEDS: THIAMINE 100 MG TABLET PO SCH (08:50)
[2022-01-06] MEDS: RisperiDONE 1 MG TABLET PO SCH ×2 (08:50→17:04)
[2022-01-06] MEDS: TAMSULOSIN HCL 0.4 MG CAPSULE PO SCH (08:50)
[2022-01-06] MEDS: FLUTICASONE PROPIONATE 50 MCG/SPRAY 16 GM NASAL SPRAY NASAL SCH (08:50)
[2022-01-06] MEDS: DULoxetine HCL 60 MG CAPSULE PO SCH (08:50)
[2022-01-06] MEDS: MULTIVITAMINS WITH MINERALS, THERAPEUTIC TABLET PO SCH (08:50)
[2022-01-06] MEDS: DIVALPROEX SODIUM 500 MG DR TABLET PO SCH ×2 (08:51→21:00)
[2022-01-06] MEDS: LORazepam 2 MG TABLET PO PRN ×2 (12:43→19:19)
[2022-01-06] MEDS: ZOLPIDEM TARTRATE 10 MG TABLET PO PRN (20:25)
[2022-01-06 21:44] VITALS: BP 108/76
[2022-01-06] MEDS: GABAPENTIN 100 MG CAPSULE PO SCH (21:56)
[2022-01-06] MEDS: -LIDODERM PATCH NOTE- MISC SCH (21:56)
[2022-01-07] MEDS: MULTIVITAMINS WITH MINERALS, THERAPEUTIC TABLET PO SCH (08:32)
[2022-01-07] MEDS: TAMSULOSIN HCL 0.4 MG CAPSULE PO SCH (08:32)
[2022-01-07] MEDS: DIVALPROEX SODIUM 500 MG DR TABLET PO SCH ×3 (08:32→21:00)
[2022-01-07] MEDS: DULoxetine HCL 60 MG CAPSULE PO SCH (08:32)
[2022-01-07] MEDS: RisperiDONE 1 MG TABLET PO SCH ×2 (08:32→16:08)
[2022-01-07] MEDS: FOLIC ACID 0.4 MG TABLET PO SCH (08:32)
[2022-01-07] MEDS: TiZANidine HCL 4 MG TABLET PO SCH ×2 (08:32→16:08)
[2022-01-07] MEDS: THIAMINE 100 MG TABLET PO SCH (08:32)
[2022-01-07] MEDS: FLUTICASONE PROPIONATE 50 MCG/SPRAY 16 GM NASAL SPRAY NASAL SCH (08:33)
[2022-01-07] MEDS: LIDOCAINE 5% TRANSDERMAL PATCH TD SCH (08:47)
[2022-01-07 09:10] VITALS: BP 107/69
[2022-01-07] MEDS: LORazepam 2 MG TABLET PO PRN ×2 (11:05→19:24)
[2022-01-07] MEDS: GABAPENTIN 100 MG CAPSULE PO SCH (21:05)
[2022-01-07] MEDS: -LIDODERM PATCH NOTE- MISC SCH (21:37)
[2022-01-07] MEDS: ZOLPIDEM TARTRATE 10 MG TABLET PO PRN (22:06)
[2022-01-08] MEDS: LORazepam 2 MG TABLET PO PRN ×3 (03:27→18:50)
[2022-01-08] MEDS: DIVALPROEX SODIUM 500 MG DR TABLET PO SCH ×2 (09:00→20:34)
[2022-01-08] MEDS: DULoxetine HCL 60 MG CAPSULE PO SCH ×2 (09:00→11:19)
[2022-01-08] MEDS: RisperiDONE 1 MG TABLET PO SCH ×2 (09:01→16:13)
[2022-01-08] MEDS: FOLIC ACID 0.4 MG TABLET PO SCH (09:01)
[2022-01-08] MEDS: TAMSULOSIN HCL 0.4 MG CAPSULE PO SCH (09:01)
[2022-01-08] MEDS: TiZANidine HCL 4 MG TABLET PO SCH ×2 (09:02→16:13)
[2022-01-08] MEDS: THIAMINE 100 MG TABLET PO SCH (09:02)
[2022-01-08] MEDS: MULTIVITAMINS WITH MINERALS, THERAPEUTIC TABLET PO SCH (09:03)
[2022-01-08] MEDS: LIDOCAINE 5% TRANSDERMAL PATCH TD SCH (09:05)
[2022-01-08] MEDS: FLUTICASONE PROPIONATE 50 MCG/SPRAY 16 GM NASAL SPRAY NASAL SCH (09:16)
[2022-01-08 16:24] VITALS: BP 116/54
[2022-01-08] MEDS: MAGNESIUM HYDROXIDE SUSPENSION 30 ML UDCUP PO PRN (18:01)
[2022-01-08] MEDS: ZOLPIDEM TARTRATE 10 MG TABLET PO PRN (20:06)
[2022-01-08] MEDS: GABAPENTIN 100 MG CAPSULE PO SCH (20:34)
[2022-01-08] MEDS: -LIDODERM PATCH NOTE- MISC SCH (20:35)
[2022-01-09 03:50] VITALS: BP 118/83
[2022-01-09] MEDS: IBUPROFEN 600 MG TABLET PO PRN (03:57)
[2022-01-09 08:00] VITALS: BP 137/82
[2022-01-09] MEDS: FOLIC ACID 0.4 MG TABLET PO SCH (08:11)
[2022-01-09] MEDS: THIAMINE 100 MG TABLET PO SCH (08:11)
[2022-01-09] MEDS: RisperiDONE 1 MG TABLET PO SCH ×2 (08:11→16:45)
[2022-01-09] MEDS: TAMSULOSIN HCL 0.4 MG CAPSULE PO SCH (08:11)
[2022-01-09] MEDS: TiZANidine HCL 4 MG TABLET PO SCH ×2 (08:11→16:45)
[2022-01-09] MEDS: MULTIVITAMINS WITH MINERALS, THERAPEUTIC TABLET PO SCH (08:11)
[2022-01-09] MEDS: DULoxetine HCL 60 MG CAPSULE PO SCH (08:11)
[2022-01-09] MEDS: LIDOCAINE 5% TRANSDERMAL PATCH TD SCH (08:12)
[2022-01-09] MEDS: FLUTICASONE PROPIONATE 50 MCG/SPRAY 16 GM NASAL SPRAY NASAL SCH (08:12)
[2022-01-09] MEDS: DIVALPROEX SODIUM 500 MG DR TABLET PO SCH ×2 (08:15→20:55)
[2022-01-09] MEDS: LORazepam 2 MG TABLET PO PRN ×2 (10:37→18:45)
[2022-01-09 16:00] VITALS: BP 139/96
[2022-01-09] MEDS: GABAPENTIN 100 MG CAPSULE PO SCH (20:55)
[2022-01-09] MEDS: -LIDODERM PATCH NOTE- MISC SCH (20:55)
[2022-01-09] MEDS: ZOLPIDEM TARTRATE 10 MG TABLET PO PRN (21:09)
[2022-01-10 02:15] VITALS: BP 146/86
[2022-01-10] MEDS: IBUPROFEN 600 MG TABLET PO PRN (02:20)
[2022-01-10] MEDS: FLUTICASONE PROPIONATE 50 MCG/SPRAY 16 GM NASAL SPRAY NASAL SCH (08:39)
[2022-01-10] MEDS: TiZANidine HCL 4 MG TABLET PO SCH ×2 (08:40→17:08)
[2022-01-10] MEDS: MULTIVITAMINS WITH MINERALS, THERAPEUTIC TABLET PO SCH (08:41)
[2022-01-10] MEDS: RisperiDONE 1 MG TABLET PO SCH ×2 (08:41→17:08)
[2022-01-10] MEDS: FOLIC ACID 0.4 MG TABLET PO SCH (08:42)
[2022-01-10] MEDS: THIAMINE 100 MG TABLET PO SCH (08:44)
[2022-01-10] MEDS: TAMSULOSIN HCL 0.4 MG CAPSULE PO SCH (08:45)
[2022-01-10] MEDS: DIVALPROEX SODIUM 500 MG DR TABLET PO SCH ×2 (08:49→21:00)
[2022-01-10] MEDS: LIDOCAINE 5% TRANSDERMAL PATCH TD SCH (08:58)
[2022-01-10] MEDS: DULoxetine HCL 60 MG CAPSULE PO SCH (08:58)
[2022-01-10 10:14] VITALS: BP 126/83
[2022-01-10] MEDS: LORazepam 2 MG TABLET PO PRN (13:25)
[2022-01-10 16:51] VITALS: BP 129/78
[2022-01-10] MEDS: -LIDODERM PATCH NOTE- MISC SCH (21:00)
[2022-01-10] MEDS: ZOLPIDEM TARTRATE 10 MG TABLET PO PRN (21:04)
[2022-01-10] MEDS: GABAPENTIN 100 MG CAPSULE PO SCH (21:04)
[2022-01-10 23:58] VITALS: BP 120/83
[2022-01-11] MEDS: FLUTICASONE PROPIONATE 50 MCG/SPRAY 16 GM NASAL SPRAY NASAL SCH (08:44)
[2022-01-11] MEDS: MULTIVITAMINS WITH MINERALS, THERAPEUTIC TABLET PO SCH (08:55)
[2022-01-11] MEDS: TAMSULOSIN HCL 0.4 MG CAPSULE PO SCH (08:55)
[2022-01-11] MEDS: THIAMINE 100 MG TABLET PO SCH (08:55)
[2022-01-11] MEDS: FOLIC ACID 0.4 MG TABLET PO SCH (08:55)
[2022-01-11] MEDS: DULoxetine HCL 60 MG CAPSULE PO SCH (08:55)
[2022-01-11] MEDS: TiZANidine HCL 4 MG TABLET PO SCH ×2 (08:57→16:13)
[2022-01-11] MEDS: DIVALPROEX SODIUM 500 MG DR TABLET PO SCH ×2 (09:00→20:24)
[2022-01-11] MEDS: RisperiDONE 1 MG TABLET PO SCH ×2 (09:00→16:13)
[2022-01-11] MEDS: LIDOCAINE 5% TRANSDERMAL PATCH TD SCH (09:00)
[2022-01-11 09:12] VITALS: BP 130/83
[2022-01-11] MEDS: LORazepam 2 MG TABLET PO PRN (11:09)
[2022-01-11 19:59] VITALS: BP 135/81
[2022-01-11] MEDS: IBUPROFEN 600 MG TABLET PO PRN ×2 (19:59)
[2022-01-11] MEDS: ZOLPIDEM TARTRATE 10 MG TABLET PO PRN (20:24)
[2022-01-11] MEDS: GABAPENTIN 100 MG CAPSULE PO SCH (20:24)
[2022-01-11] MEDS: -LIDODERM PATCH NOTE- MISC SCH (20:42)
[2022-01-12 05:23] VITALS: BP 106/65
[2022-01-12] MEDS: FOLIC ACID 0.4 MG TABLET PO SCH (08:45)
[2022-01-12] MEDS: TiZANidine HCL 4 MG TABLET PO SCH ×2 (08:45→16:01)
[2022-01-12] MEDS: LIDOCAINE 5% TRANSDERMAL PATCH TD SCH (08:47)
[2022-01-12] MEDS: THIAMINE 100 MG TABLET PO SCH (08:52)
[2022-01-12] MEDS: DULoxetine HCL 60 MG CAPSULE PO SCH (08:52)
[2022-01-12] MEDS: MAGNESIUM HYDROXIDE SUSPENSION 30 ML UDCUP PO PRN (08:52)
[2022-01-12] MEDS: RisperiDONE 1 MG TABLET PO SCH ×2 (08:52→16:01)
[2022-01-12] MEDS: TAMSULOSIN HCL 0.4 MG CAPSULE PO SCH (08:52)
[2022-01-12] MEDS: MULTIVITAMINS WITH MINERALS, THERAPEUTIC TABLET PO SCH (08:52)
[2022-01-12] MEDS: FLUTICASONE PROPIONATE 50 MCG/SPRAY 16 GM NASAL SPRAY NASAL SCH (08:53)
[2022-01-12] MEDS: DIVALPROEX SODIUM 500 MG DR TABLET PO SCH ×2 (08:54→20:14)
[2022-01-12 10:39] VITALS: BP 120/84
[2022-01-12] MEDS: LORazepam 2 MG TABLET PO PRN (12:01)
[2022-01-12 16:55] VITALS: BP 117/72
[2022-01-12] MEDS: IBUPROFEN 600 MG TABLET PO PRN (20:05)
[2022-01-12] MEDS: ZOLPIDEM TARTRATE 10 MG TABLET PO PRN (20:05)
[2022-01-12 20:06] VITALS: BP 122/68
[2022-01-12] MEDS: IMIPRAMINE HCL 10 MG TAB PO SCH (20:14)
[2022-01-12] MEDS: GABAPENTIN 100 MG CAPSULE PO SCH (20:14)
[2022-01-12] MEDS: -LIDODERM PATCH NOTE- MISC SCH (20:14)
[2022-01-13 00:45] VITALS: BP 115/70
[2022-01-13 01:10] VITALS: BP 125/75
[2022-01-13 08:30] VITALS: BP 114/73
[2022-01-13] MEDS: DIVALPROEX SODIUM 500 MG DR TABLET PO SCH ×3 (08:44→20:23)
[2022-01-13] MEDS: DULoxetine HCL 60 MG CAPSULE PO SCH (08:44)
[2022-01-13] MEDS: MULTIVITAMINS WITH MINERALS, THERAPEUTIC TABLET PO SCH (08:45)
[2022-01-13] MEDS: FOLIC ACID 0.4 MG TABLET PO SCH (08:45)
[2022-01-13] MEDS: TAMSULOSIN HCL 0.4 MG CAPSULE PO SCH (08:45)
[2022-01-13] MEDS: THIAMINE 100 MG TABLET PO SCH (08:45)
[2022-01-13] MEDS: TiZANidine HCL 4 MG TABLET PO SCH ×2 (08:45→16:56)
[2022-01-13] MEDS: FLUTICASONE PROPIONATE 50 MCG/SPRAY 16 GM NASAL SPRAY NASAL SCH (08:49)
[2022-01-13] MEDS: LIDOCAINE 5% TRANSDERMAL PATCH TD SCH (08:52)
[2022-01-13] MEDS: LORazepam 2 MG TABLET PO PRN (14:33)
[2022-01-13 18:13] VITALS: BP 126/79
[2022-01-13 18:14] VITALS: BP 126/79
[2022-01-13 19:57] VITALS: BP 123/68
[2022-01-13] MEDS: IBUPROFEN 600 MG TABLET PO PRN (19:57)
[2022-01-13] MEDS: GABAPENTIN 100 MG CAPSULE PO SCH (20:24)
[2022-01-13] MEDS: IMIPRAMINE HCL 10 MG TAB PO SCH (20:24)
[2022-01-13] MEDS: -LIDODERM PATCH NOTE- MISC SCH (21:17)
[2022-01-13] MEDS: ZOLPIDEM TARTRATE 10 MG TABLET PO PRN (21:34)
[2022-01-14 07:32] LABS: COVID AG,FIA SOURCE NASAL SWAB
[2022-01-14 08:05] VITALS: BP 126/95
[2022-01-14] MEDS: DULoxetine HCL 60 MG CAPSULE PO SCH (08:07)
[2022-01-14] MEDS: FLUTICASONE PROPIONATE 50 MCG/SPRAY 16 GM NASAL SPRAY NASAL SCH (08:08)
[2022-01-14] MEDS: MULTIVITAMINS WITH MINERALS, THERAPEUTIC TABLET PO SCH (08:08)
[2022-01-14] MEDS: FOLIC ACID 0.4 MG TABLET PO SCH (08:08)
[2022-01-14] MEDS: THIAMINE 100 MG TABLET PO SCH (08:08)
[2022-01-14] MEDS: TAMSULOSIN HCL 0.4 MG CAPSULE PO SCH (08:08)
[2022-01-14] MEDS: TiZANidine HCL 4 MG TABLET PO SCH ×2 (08:09→16:31)
[2022-01-14 08:15] VITALS: BP 126/95
[2022-01-14] MEDS: IBUPROFEN 600 MG TABLET PO PRN (08:20)
[2022-01-14] MEDS: LIDOCAINE 5% TRANSDERMAL PATCH TD SCH (08:21)
[2022-01-14] MEDS: DIVALPROEX SODIUM 500 MG DR TABLET PO SCH (09:00)
[2022-01-14] MEDS: LORazepam 2 MG TABLET PO PRN (10:00)
[2022-01-14] MEDS ORDERED: DIVA-112 PO (16:08)
[2022-01-14] MEDS ORDERED: DULO-113 PO (16:08)
[2022-01-14] MEDS ORDERED: IMIP10 PO (16:08)
[2022-01-14] MEDS ORDERED: GABA-1216 PO (16:08)
== END 2022-01-14 17:15 | disposition home or self-care (01) | DRG 750 ==
LOC: EMS 12:09 → 3EI 18:24
PROVIDERS: ADMIT Psychiatry & Neurology Psychiatry; ATTEND Psychiatry & Neurology Psychiatry
DX: F25.1 Schizoaffective disorder, depressive type (principal); R45.851 Suicidal ideations; S22.32XA Fracture of one rib, left side, initial encounter for closed fracture; Z20.822 Contact with and (suspected) exposure to COVID-19; I10 Essential (primary) hypertension; J44.9 Chronic obstructive pulmonary disease, unspecified; N40.0 Benign prostatic hyperplasia without lower urinary tract symptoms; W01.0XXA Fall on same level from slipping, tripping and stumbling without subsequent striking against object, initial encounter; K21.9 Gastro-esophageal reflux disease without esophagitis; F15.10 Other stimulant abuse, uncomplicated; K59.00 Constipation, unspecified; G47.00 Insomnia, unspecified; Y93.89 Activity, other specified; Z79.899 Other long term (current) drug therapy; Z87.891 Personal history of nicotine dependence; Y92.89 Other specified places as the place of occurrence of the external cause; Y99.8 Other external cause status
CPT/HCPCS: 71101; 80053; 80164; 81003; 84484; 85025; 87081; 93005; 99285; G0238; G0480